=== PATIENT | female | born 1975 | race Caucasian/White ===

== ENCOUNTER 2024-03-27 17:00 | Emergency (ER) | payer MEDICAID ==
[~2024-03-27] VITALS: Ht 152.4 cm; Wt 80.6 kg
[2024-03-27 17:02] VITALS: BP 129/59; PULSE 81; RESP 16; O2SAT 94
[2024-03-27] MEDS ORDERED: CLIN40CR11 VG (18:21)
[2024-03-27] MEDS: fluconazole 150mg tablet PO ONE (18:57)
[2024-03-27 19:02] VITALS: TEMP 98.6
== END 2024-03-27 19:04 | disposition home or self-care (01) ==
LOC: ER 17:01
DX: A64 Unspecified sexually transmitted disease (principal); Z88.5 Allergy status to narcotic agent
CPT/HCPCS: 99283

== ENCOUNTER 2024-04-21 20:22 | Emergency (ER) | payer MEDICAID ==
[~2024-04-21] VITALS: Ht 152.4 cm; Wt 80.8 kg
[2024-04-21 20:28] VITALS: BP 116/66; PULSE 92; RESP 16; TEMP 98.8; O2SAT 95
[2024-04-21] MEDS: fluconazole 150mg tablet PO ONE (21:12)
== END 2024-04-21 21:18 | disposition home or self-care (01) ==
LOC: ER 20:23
DX: B37.31 Acute candidiasis of vulva and vagina (principal); Z91.040 Latex allergy status; Z88.5 Allergy status to narcotic agent
CPT/HCPCS: 99283

== ENCOUNTER 2024-05-12 15:09 | Emergency (ER) | payer MEDICAID ==
[~2024-05-12] VITALS: Ht 152.4 cm; Wt 77.6 kg
[2024-05-12] MEDS ORDERED: TAM75C PO (17:33)
[2024-05-12 17:44] VITALS: BP 120/86; PULSE 89; RESP 18; TEMP 97.8; O2SAT 98
== END 2024-05-12 17:45 | disposition home or self-care (01) ==
LOC: ER 15:09
DX: B34.9 Viral infection, unspecified (principal); Z88.5 Allergy status to narcotic agent; Z91.040 Latex allergy status; Z20.822 Contact with and (suspected) exposure to COVID-19
CPT/HCPCS: 36415; 87502; 87503; 99283

== ENCOUNTER 2024-08-19 18:48 | Emergency (ER) | payer MEDICAID ==
[~2024-08-19] VITALS: Ht 154.9 cm; Wt 85.5 kg
[2024-08-19 18:50] VITALS: BP 118/59; PULSE 93; RESP 16; O2SAT 97
--- NOTE | 2024-08-19 20:15 | Physician Documentation ---
History of Present Illness General Chief Complaint: See Chief Complaint Stated Complaint: HAND FOOT MOUTH EXPOSURE Time Seen by MD: 19:58 History of Present Illness Initial Comments This is a 48-year-old female who presents with concern for hand foot and mouth d isease exposure as her child was diagnosed with hwwm-tvtq-waxvl disease, patient reports no symptoms though is concerned about the disease this is contagious and she works with the elderly. Patient reports it she was told to stay home from work due to exposure to the hand foot and mouth disease. Patient reports no acute symptoms or other concerns. Medication Reconciliation Allergies: Coded Allergies: codeine (Verified Allergy, Mild, hives and vomiting, 05/12/24) latex (Verified Allergy, Unknown, 05/12/24) Review of Systems ROS As stated above in the HPI, otherwise all systems are reviewed and negative. Physical Exam Physical Exam Vital Signs: Temperature: 99.4, Source: Oral, Heart Rate: 93, Respiratory Rate: 16, BP: 118/59, Pulse Oximetry: 97, Weight: 85.500 Oxygen Flow Rate: 0 Physical Exam VITALS: Reviewed and as above. GENERAL: Alert, nontoxic appearing, no apparent distress. HEENT: Oropharynx nonerythematous, no lesions RESPIRATORY: No increased work of breathing, no respiratory distress, speaking in full clear sentences SKIN: No lesions to hands or feet Progress Results/Orders Results/Orders Vital Signs 08/19/24 08/19/24 18:50 20:19 Temp 99.4 99.4 Pulse 93 Resp 16 B/P (MAP) 118/59 Pulse Ox 97 O2 Flow Rate 0 Medical Decision Making Findings This 48-year-old female presented with concern for in foot and mouth disease though reported no symptoms, patient is concerned due to her child having znfd-qznv-jlwhm disease, patient was provided reassurance and home care instructions to include that has directions for careful hand hygiene and other infection control measures. As patient reports no other acute symptoms or concerns and physical exam benign without evidence of lesions to the mouth her hands to suggest emwj-nzyp-xklsq disease patient is appropriate for outpatient follow up. Patient provided return to care precautions which she verbalized understanding of. Differential Diagnosis Hand foot and mouth disease, pharyngitis Departure Disposition: HOME / SELF CARE / HOMELESS Impression: Primary Impression: General medical exam Condition: Improved Discharge Instructions: Hand, Foot, and Mouth Disease, Adult Additional Instructions: As you are completely asymptomatic I do not believe you have cfbx-gknz-[id number] sees at this time, though if you do develop symptoms you should stay home from work. To prevent the spread of hand foot and mouth disease make sure you in your child are practicing good hand hygiene washing her hands frequently, covering his cough, and do not share utensils or food with your child. Please follow up with your primary care provider in the next few days. Please return to the emergency department for any new or worsening concerning symptoms. Referrals: NO PRIMARY CARE PROVIDER (PCP) Education Educated: Patient Educated regarding: diagnosis, treatment, prognosis, need for follow up Signature Scribe Signature: No scribe Attestation: The note accurately reflects work and decisions made by me.PAMELA Jhaveri 08/20/24 02:26 JESSICA SOLORIO August 19, 2024 20:15
[2024-08-19 20:19] VITALS: TEMP 99.4
== END 2024-08-19 20:20 | disposition home or self-care (01) ==
LOC: ER 18:48
DX: B08.4 Enteroviral vesicular stomatitis with exanthem (principal); Z88.5 Allergy status to narcotic agent; Z91.040 Latex allergy status
CPT/HCPCS: 99281